=== PATIENT | male | born 1935 | race Caucasian/White ===

== ENCOUNTER 2016-10-11 12:32 | Observation (INO) | payer MEDICARE ==
[2016-10-11] VITALS (8 sets, daily range): BP systolic 114–151; BP diastolic 66–84; PULSE 74–90; RESP 16–20; TEMP 99.1–101.4; O2SAT 95–100
[~2016-10-11] VITALS: Ht 170.2 cm; Wt 62.0 kg
[~2016-10-11 12:32] MED LIST: ASPI1TAB7 PO; BP MED; CHOLMIS5
[2016-10-11] MEDS ORDERED: SODIUM CHLORIDE 0.9% FLUSH 5 ML FLUSH IVF PRN (12:45)
[2016-10-11] MEDS ORDERED: SIMV10TA PO (12:46)
[2016-10-11] MEDS ORDERED: BENI5TAB4 PO (12:46)
[2016-10-11] MEDS ORDERED: ASPI1TAB69 PO (12:46)
[2016-10-11 13:05] LABS: AUTOMATED NEUTROPHIL # 6.9 TH/MM3 (1.8-7.7); BASOPHIL % 0.2 % (0.0-2.0); EOSINOPHIL # 0.2 TH/MM3 (0-0.4); EOSINOPHIL % 2.9 % (0.0-4.0); HEMATOCRIT 31.7 % (39.0-51.0); HEMO FLAGS DIFF FINAL; LYMPH % 5.2 % (9.0-44.0); LYMPHOCYTE # 0.4 TH/MM3 (1.0-4.8); MEAN CELL VOLUME 88.6 FL (80.0-100.0); MEAN CORPUSCULAR HEMOGLOBIN 29.6 PG (27.0-34.0); MEAN CORPUSCULAR HGB CONC 33.4 % (32.0-36.0); MONO % 7.1 % (0.0-8.0); NEUT % 84.6 % (16.0-70.0); PLATELET COUNT 185 TH/MM3 (150-450); RED BLOOD COUNT 3.58 MIL/MM3 (4.50-5.90); RED CELL DISTRIBUTION WIDTH 13.9 % (11.6-17.2); WHITE BLOOD COUNT 8.1 TH/MM3 (4.0-11.0)
--- NOTE | 2016-10-11 13:11 | RADRPT ---
EXAM DATE/TIME: 10/11/2016 13:00 [facility] COMPARISON: No previous studies available for comparison. INDICATIONS : Syncope, Palpitations. MEDICAL HISTORY : None. SURGICAL HISTORY : None. ENCOUNTER: Initial ACUITY: 1 day PAIN SCORE: 0/10 LOCATION: Bilateral chest FINDINGS: A single view of the chest demonstrates the lungs to be symmetrically aerated without evidence of mas s, infiltrate or effusion. Atherosclerotic changes are present in the aorta. There are multiple overl shravan electrocardiogram leads. The cardiomediastinal contours are unremarkable. Osseous structures a re intact. CONCLUSION: No acute disease. Jose Reeder MD on October 11, 2016 at 13:06 Board Certified Radiologist. This report was verified electronically.
[2016-10-11 13:13] LABS: APTT (PATIENT) 23.1 SEC (24.3-30.1); PROTHROMBIN TIME - PATIENT 11.4 SEC (9.8-11.6)
[2016-10-11 13:19] LABS: ALT (GPT) 24 U/L (12-78); ANION GAP 9 MEQ/L (5-15); AST (GOT) 16 U/L (15-37); BICARBONATE 28.2 MEQ/L (21.0-32.0); BLOOD UREA NITROGEN 28 MG/DL (7-18); CHLORIDE 106 MEQ/L (98-107); GLOMERULAR FILTRATION RATE 54 ML/MIN (>89); MAGNESIUM 1.2 MG/DL (1.5-2.5); POTASSIUM 3.7 MEQ/L (3.5-5.1); SODIUM (NA) 143 MEQ/L (136-145)
[2016-10-11 13:23] LABS: ALKALINE PHOSPHATASE 60 U/L (45-117); TOTAL BILIRUBIN ADULT 0.4 MG/DL (0.2-1.0)
[2016-10-11 13:50] LABS: CREATINE KINASE 54 U/L (39-308)
--- NOTE | 2016-10-11 13:52 | EKG ---
Date Performed: 10/11/2016 Time Performed: 10:40:31 PTAGE: 81 years EKG: Baseline artifact is present. Sinus rhythm NONSPECIFIC T-WAVE ABNORMALITY BORDERLINE ECG NO PREVIOUS TRACING DOCTOR: Mike Post Interpretating Date/Time 10/11/2016 13:51:13
[2016-10-11] MEDS ORDERED: CENTTAB PO (13:53)
[2016-10-11] MEDS ORDERED: METO25TA3 PO (13:53)
[2016-10-11] MEDS ORDERED: [UNRECOGNIZED DRUG - CODE] (13:53)
[2016-10-11] MEDS ORDERED: OCUVTAB PO (13:53)
[2016-10-11] MEDS ORDERED: TAMS0.4C4 PO (13:53)
[2016-10-11] MEDS ORDERED: PRAV10TA PO (13:53)
[2016-10-11] MEDS ORDERED: OMEP10CA PO (13:53)
[2016-10-11 14:09] LABS: BLOOD, URINE NEG (NEG); COMMENT (UR) CULT NOT INDICATED; CULTURE IF INDICATED CULT NOT INDICATED; GLUCOSE,URINE NEG (NEG); KETONE, URINE NEG (NEG); MUCUS URINE FEW /lpf (OCC); NITRITE,URINE NEG (NEG); SQUAMOUS EPITHELIAL CELL URINE <1 /hpf (0-5); URINE COLOR YELLOW (YELLW/STRAW)
[2016-10-11] MEDS ORDERED: SODIUM CHLORIDE 0.9% FLUSH 5 ML FLUSH FLUSH PRN (16:30)
[2016-10-11] MEDS ORDERED: POTASSIUM CHLORIDE 20 MEQ CONTROLLED RELEASE TAB PO ONE (16:30)
[2016-10-11] MEDS ORDERED: IBUPROFEN 400 MG TAB PO PRN (16:30)
[2016-10-11] MEDS ORDERED: NALOXONE HCL 0.4 MG/ML AMP IV PRN (16:30)
[2016-10-11] MEDS ORDERED: ACETAMINOPHEN 325 MG TAB PO PRN ×2 (16:30)
[2016-10-11] MEDS ORDERED: SENNOSIDES 8.6 MG TAB PO PRN (16:30)
--- NOTE | 2016-10-11 16:40 | HHI.HP ---
HPI Service [facility] Primary Care Physician Benjamin Reilly MD Admission Diagnosis Near-Syncope Diagnoses: Chief Complaint: Almost fainted Travel History International Travel<30 Days: No Contact w/Intl Traveler <30 Da: No Traveled to Known Affected Are: No History of Present Illness The patient is an 81-year-old male with a past medical history of hypertension and hyperlipidemia who is presenting to the hospital after having a near syncopal episode. The patient said that he was having breakfast with his son and while he was trying to get his pancakes he felt his head was lowering and he was unable to stop it. He did not pass out. He did feel confused following the episode. He denies any sensation of dizziness or any visual changes. He was told that he appeared like he was shaking in his hands and arms. The paramedics arrived on the scene and the patient was brought to the hospital. The patient does mention that earlier in the day he was trying to get on his 3 wheeled motorcycle but he was unable to do so because his legs were very weak. He noticed more weakness on the left lower extremity. He has noticed increased lower extremity weakness for the past couple of weeks and got a walker about 2 weeks ago. The patient denies any chest pain or shortness of breath. He has had some diarrhea. He denies any dysuria. He says he had a similar episode a couple of years ago following dental surgery where he nearly passed out. He says at that time his primary wanted him to get his brain and heart checked. Review of Systems Except as stated in HPI: all other systems reviewed are Neg Past Family Social History Past Medical History Hypertension Hyperlipidemia Osteoarthritis Near syncope Past Surgical History Right hip replacement Allergies: Coded Allergies: Penicillin (Verified Allergy, Intermediate, SWELLING, 07/24/13) Active Ordered Medications Current Medications Medications (Trade) Dose Ordered Sig/Trent Route Start Time Stop Time Status Last Admin (Magnesium Sulfate 1 Gm Premix) 100 ml @ 100 mls/hr Q1H IV 10/11/16 17:00 10/11/16 19:59 (Ecotrin Ec) 81 mg DAILY PO 10/12/16 09:00 (Ocuvite) 1 tab DAILY PO 10/12/16 09:00 (Flomax) 0.4 mg HS PO 10/11/16 21:00 (Protonix) 20 mg DAILY PO 10/12/16 09:00 Pravastatin Sodium 20 mg 20 mg DAILY PO 10/12/16 09:00 (1/2 NS 1000 ml Inj) 1,000 ml @ 75 mls/hr [id number] IV 10/11/16 16:26 10/12/16 19:05 (NS Flush) 2 ml UNSCH PRN FLUSH 10/11/16 16:30 (NS Flush) 2 ml BID FLUSH 10/11/16 21:00 (Tylenol) 650 mg Q4H PRN PO 10/11/16 16:30 (Colace) 100 mg Q12H PO 10/11/16 21:00 (Senokot) 17.2 mg Q12H PRN PO 10/11/16 16:30 (Tylenol) 650 mg Q6H PRN PO 10/11/16 16:30 (Motrin) 400 mg Q6H PRN PO 10/11/16 16:30 (Roxicodone) 5 mg Q4H PRN PO 10/11/16 16:30 (Narcan Inj) 0.4 mg UNSCH PRN IV 10/11/16 16:30 Family History His father was diagnosed with Parkinson's disease Social History The patient does not smoke. He drinks one glass of wine daily. He denies illicit drug use. Physical Exam Vital Signs Vital Signs Date Time Temp Pulse Resp B/P Pulse Ox O2 Delivery O2 Flow Rate FiO2 10/11/16 15:20 80 119/76 99 Nasal Cannula 2 10/11/16 13:20 78 120/68 98 Nasal Cannula 2 10/11/16 12:47 100 Nasal Cannula 2 10/11/16 12:37 20 97 Nasal Cannula 2 10/11/16 12:37 81 100 10/11/16 12:34 20 Physical Exam GENERAL: This is a well-nourished, well-developed patient, in no apparent distress. SKIN: No rashes, ecchymoses or lesions. Cool and dry. HEAD: Atraumatic. Normocephalic. No temporal or scalp tenderness. EYES: Pupils equal round and reactive. Extraocular motions intact. No scleral icterus. No injection or drainage. ENT: Nose without bleeding, purulent drainage or septal hematoma. Throat without erythema, tonsillar hypertrophy or exudate. Uvula midline. Airway patent. NECK: Trachea midline. No JVD or lymphadenopathy. Supple, nontender, no meningeal signs. CARDIOVASCULAR: Regular rate and rhythm without murmurs, gallops, or rubs. RESPIRATORY: Clear to auscultation. Breath sounds equal bilaterally. No wheezes , rales, or rhonchi. GASTROINTESTINAL: Abdomen soft, non-tender, nondistended. No hepato-splenomegaly , or palpable masses. No guarding. MUSCULOSKELETAL: Extremities without clubbing, cyanosis, or edema. No edema noted. Slight tenderness to palpation of left booth. No calf tenderness. Negative Homans sign bilaterally. NEUROLOGICAL: Awake and alert. Cranial nerves II through XII intact. Sensory grossly within normal limits. Five out of 5 muscle strength in upper extremities. 3/5 strength in the left lower extremity, 4 out of 5 strength in the right lower extremity. Normal speech. PSYCH: Mood and affect appropriate. Laboratory Laboratory Tests Test 10/11/16 10/11/16 12:50 13:50 White Blood Count 8.1 Red Blood Count 3.58 Hemoglobin 10.6 Hematocrit 31.7 Mean Corpuscular Volume 88.6 Mean Corpuscular Hemoglobin 29.6 Mean Corpuscular Hemoglobin 33.4 Concent Red Cell Distribution Width 13.9 Platelet Count 185 Mean Platelet Volume 8.4 Neutrophils (%) (Auto) 84.6 Lymphocytes (%) (Auto) 5.2 Monocytes (%) (Auto) 7.1 Eosinophils (%) (Auto) 2.9 Basophils (%) (Auto) 0.2 Neutrophils # (Auto) 6.9 Lymphocytes # (Auto) 0.4 Monocytes # (Auto) 0.6 Eosinophils # (Auto) 0.2 Basophils # (Auto) 0.0 CBC Comment DIFF FINAL Differential Comment Prothrombin Time 11.4 Prothromb Time International 1.0 Ratio Activated Partial 23.1 Thromboplast Time Sodium Level 143 Potassium Level 3.7 Chloride Level 106 Carbon Dioxide Level 28.2 Anion Gap 9 Blood Urea Nitrogen 28 Creatinine 1.28 Estimat Glomerular Filtration 54 Rate Random Glucose 143 Calcium Level 8.6 Magnesium Level 1.2 Total Bilirubin 0.4 Aspartate Amino Transf 16 (AST/SGOT) Alanine Aminotransferase 24 (ALT/SGPT) Alkaline Phosphatase 60 Total Creatine Kinase 54 Troponin I LESS THAN 0.02 B-Type Natriuretic Peptide 72 Total Protein 6.7 Albumin 3.4 Urine Color YELLOW Urine Turbidity CLEAR Urine pH 5.0 Urine Specific [place] 1.018 Urine Protein TRACE Urine Glucose (UA) NEG Urine Ketones NEG Urine Occult Blood NEG Urine Nitrite NEG Urine Bilirubin NEG Urine Urobilinogen LESS THAN 2.0 Urine Leukocyte Esterase NEG Urine RBC LESS THAN 1 Urine WBC 1 Urine Squamous Epithelial <1 Cells Urine Mucus FEW Microscopic Urinalysis Comment CULT NOT INDICATED Result Diagram: 10/11/16 1250 10/11/16 1250 Imaging Last Impressions Chest X-Ray 10/11/16 1245 Signed Impressions: Service Date/Time: Tuesday, October 11, 2016 13:00 - CONCLUSION: No acute disease. Jose Reeder MD Assessment and Plan Assessment and Plan Near syncope/ Lower extremity weakness The patient had an episode during breakfast where he had sudden weakness but did not pass out. He had a similar episode a couple of years ago that was related to a dental procedure. He says that people said that he was shaking during the episode a little bit. The pt says he has had LE weakness for the past couple of weeks, worse on his left. - CT of the head pending. - Check an EEG. - Seizure precautions, Ativan as needed. - Neuro checks. - carotid US, echo. - PT/ OT. - hold antihypertensive meds and check orthostatics. Renal insufficiency Unsure of baseline. - Avoid nephrotoxic agents and monitor BMP. - IV fluids. Hypomagnesemia May be contributing to muscle weakness. - Replete and monitor. Osteoarthritis Involving the bilateral shoulders. - Physical therapy. - Pain control as needed with a bowel regimen. PPx: SCDs. Code Status Full. Discussed Condition With Pt, Dr. Polanco. Jose Limon DO Oct 11, 2016 16:40
--- NOTE | 2016-10-11 16:49 | PD ---
HPI Chief Complaint: Syncope/Near-Syncope Time Seen by Provider: 12:37 Travel History International Travel<30 days: No Contact w/Intl Traveler<30days: No Traveled to known affect area: No History of Present Illness HPI Patient is 81 year old male with multiple syncopal episodes over the past few months. Apparently at breakfast today patient became very pale, with confused response lasting for only a few seconds. Patient denied CP, SOB, Abdominal pain , NVD, headache, focal weakness. He went out to get on his motorcycle (tricycle ) and could not get his leg over the saddle. Family called 911. Patient states that he has been seen by his PCP once for this some months ago and recommended for a "heart test and a brain test" and he never had either done. Currently states feels "fine". No current complaints. PFSH Past Medical History Hx Anticoagulant Therapy: Yes (81 MG) Cardiovascular Problems: Yes High Cholesterol: Yes Chemotherapy: Yes (PROSTATE) Cerebrovascular Accident: Yes Hypertension: Yes Social History Alcohol Use: No Tobacco Use: No Substance Use: No Allergies-Medications (Allergen,Severity, Reaction): Coded Allergies: Penicillin (Verified Allergy, Intermediate, SWELLING, 07/24/13) Reported Meds & Prescriptions Reported Meds & Active Scripts Active Reported Centrum Silver (Multiple Vitamins W/ Minerals) 1 Tab 1 Tab PO DAILY Ocuvite (Multiple Vitamins W/ Minerals) 1 Tab 1 Tab PO DAILY Wal-Mucil (Psyllium) 0.52 Gm Cap Tamsulosin (Tamsulosin HCl) 0.4 Mg Cap 0.4 Mg PO HS Omeprazole 10 Mg Cap 10 Mg PO DAILY Pravastatin 10 Mg Tab 10 Mg PO DAILY Metoprolol Tartrate 25 Mg Tab 25 Mg PO BID Aspirin 81 Mg Tabdr 81 Mg PO DAILY Simvastatin 10 Mg Tab 10 Mg PO DAILY Benicar (Olmesartan) 5 Mg Tab 5 Mg PO DAILY Review of Systems Except as stated in HPI: all other systems reviewed are Neg Physical Exam Narrative GENERAL: WD/WN in nad SKIN: Warm and dry. HEAD: Atraumatic. Normocephalic. EYES: Pupils equal and round. No scleral icterus. No injection or drainage. ENT: No nasal bleeding or discharge. Mucous membranes pink and moist. NECK: Trachea midline. No JVD. CARDIOVASCULAR: Regular rate and rhythm. 2+ pulses in all 4 extremities. RESPIRATORY: No accessory muscle use. Clear to auscultation. Breath sounds equal bilaterally. GASTROINTESTINAL: Abdomen soft, non-tender, nondistended. Hepatic and splenic margins not palpable. MUSCULOSKELETAL: Extremities without clubbing, cyanosis, or edema. No obvious deformities. NEUROLOGICAL: Awake and alert. No obvious cranial nerve deficits. Motor grossly within normal limits. Five out of 5 muscle strength in the arms and legs. Normal speech. PSYCHIATRIC: Appropriate mood and affect; insight and judgment normal. Data Data Last Documented VS Vital Signs Date Time Temp Pulse Resp B/P Pulse Ox O2 Delivery O2 Flow Rate FiO2 10/11/16 13:20 78 120/68 98 Nasal Cannula 2 10/11/16 12:37 20 Orders Electrocardiogram (10/11/16 12:45) Complete Blood Count With Diff (10/11/16 12:45) Comprehensive Metabolic Panel (10/11/16 12:45) Magnesium (Mg) (10/11/16 12:45) B-Type Natriuretic Peptide (10/11/16 12:45) Ckmb (Isoenzyme) Profile (10/11/16 12:45) Troponin I (10/11/16 12:45) Act Partial Throm Time (Ptt) (10/11/16 12:45) Prothrombin Time / Inr (Pt) (10/11/16 12:45) Urinalysis - C+S If Indicated (10/11/16 12:45) Chest, Single Ap (10/11/16 12:45) Ecg Monitoring (10/11/16 12:45) Iv Access Insert/Monitor (10/11/16 12:45) Oximetry (10/11/16 12:45) Sodium Chloride 0.9% Flush (Ns Flush) (10/11/16 12:45) Admit Order (Ed Use Only) (10/11/16 ) Labs Laboratory Tests Test 10/11/16 10/11/16 12:50 13:50 White Blood Count 8.1 TH/MM3 Red Blood Count 3.58 MIL/MM3 Hemoglobin 10.6 GM/DL Hematocrit 31.7 % Mean Corpuscular Volume 88.6 FL Mean Corpuscular Hemoglobin 29.6 PG Mean Corpuscular Hemoglobin 33.4 % Concent Red Cell Distribution Width 13.9 % Platelet Count 185 TH/MM3 Mean Platelet Volume 8.4 FL Neutrophils (%) (Auto) 84.6 % Lymphocytes (%) (Auto) 5.2 % Monocytes (%) (Auto) 7.1 % Eosinophils (%) (Auto) 2.9 % Basophils (%) (Auto) 0.2 % Neutrophils # (Auto) 6.9 TH/MM3 Lymphocytes # (Auto) 0.4 TH/MM3 Monocytes # (Auto) 0.6 TH/MM3 Eosinophils # (Auto) 0.2 TH/MM3 Basophils # (Auto) 0.0 TH/MM3 CBC Comment DIFF FINAL Differential Comment Prothrombin Time 11.4 SEC Prothromb Time International 1.0 RATIO Ratio Activated Partial 23.1 SEC Thromboplast Time Sodium Level 143 MEQ/L Potassium Level 3.7 MEQ/L Chloride Level 106 MEQ/L Carbon Dioxide Level 28.2 MEQ/L Anion Gap 9 MEQ/L Blood Urea Nitrogen 28 MG/DL Creatinine 1.28 MG/DL Estimat Glomerular Filtration 54 ML/MIN Rate Random Glucose 143 MG/DL Calcium Level 8.6 MG/DL Magnesium Level 1.2 MG/DL Total Bilirubin 0.4 MG/DL Aspartate Amino Transf 16 U/L (AST/SGOT) Alanine Aminotransferase 24 U/L (ALT/SGPT) Alkaline Phosphatase 60 U/L Total Creatine Kinase 54 U/L Troponin I LESS THAN 0.02 NG/ML B-Type Natriuretic Peptide 72 PG/ML Total Protein 6.7 GM/DL Albumin 3.4 GM/DL Urine Color YELLOW Urine Turbidity CLEAR Urine pH 5.0 Urine Specific [place] 1.018 Urine Protein TRACE mg/dL Urine Glucose (UA) NEG mg/dL Urine Ketones NEG mg/dL Urine Occult Blood NEG Urine Nitrite NEG Urine Bilirubin NEG Urine Urobilinogen LESS THAN 2.0 MG/DL Urine Leukocyte Esterase NEG Urine RBC LESS THAN 1 /hpf Urine WBC 1 /hpf Urine Squamous Epithelial <1 /hpf Cells Urine Mucus FEW /lpf Microscopic Urinalysis Comment CULT NOT INDICATED MDM Medical Decision Making Medical Screen Exam Complete: Yes Emergency Medical Condition: Yes Differential Diagnosis Syncope, near syncope, cardiogenic syncope, medication reaction, dehydration, rhabdomyolysis. Narrative Course Roomed in ED, stable. Initial workup shows mild anemia, otherwise negative. Discussed with patient, family and Hospitalist for obs for syncope, possible cardiogenic cause. Diagnosis Primary Impression: Near syncope Admitting Information Admitting Physician Requests: Observation Condition: Stable Kael Polanco MD Oct 11, 2016 16:49
[2016-10-11] MEDS ORDERED: LORazepam 2 MG/ML VIAL IV PUSH PRN (17:00)
[2016-10-11] MEDS: MAGNESIUM SULFATE 1 GM PREMIX 100 ML IV SCH ×3 (17:36→22:20)
--- NOTE | 2016-10-11 17:49 | RADRPT ---
EXAM DATE/TIME: 10/11/2016 16:56 [facility] COMPARISON: No previous studies available for comparison. INDICATIONS : Left leg pain. MEDICAL HISTORY : Hypercholesterolemia. Hypertension. Carcinoma, prostate. Cerebrovascular accident. Anticoagulant t herapy, Aspirin. Chemotherapy. SURGICAL HISTORY : Right hip surgery. ENCOUNTER: Initial ACUITY: 1 day PAIN SCORE: 7/10 LOCATION: Left leg. TECHNIQUE: Venous ultrasound of the leg was performed from the inguinal ligament to the proximal calf. Real-albina e, color Doppler and spectral tracing, compression and augmentation techniques were used. FINDINGS: There is normal compressibility of the deep venous system from the inguinal region to the proximal ca lf. No echogenic clot is seen in the lumen of the common femoral, femoral, popliteal, and posterior tibial veins. There is a normal response of the venous system to proximal and distal augmentation an d respiration. CONCLUSION: Negative exam with no evidence of deep venous thrombosis. Jose Reeder MD on October 11, 2016 at 17:47 Board Certified Radiologist. This report was verified electronically.
--- NOTE | 2016-10-11 17:57 | RADRPT ---
EXAM DATE/TIME: 10/11/2016 17:07 [facility] COMPARISON: No previous studies available for comparison. INDICATIONS : Syncope. MEDICAL HISTORY : Hypercholesterolemia. Hypertension. Carcinoma, prostate. Anticoagulant therapy, Aspirin. Chemotherapy . SURGICAL HISTORY : Right hip surgery. ENCOUNTER: Initial ACUITY: 1 day PAIN SCORE: 0/10 LOCATION: Bilateral neck PEAK SYSTOLIC VELOCITIES (cm/sec): ICA/CCA RATIO: Right: 1.0 Left: 1.1 ICA: Right: 113 Left: 106 CCA: Right: 115 Left: 94 ECA: Right: 72 Left: 93 VERTEBRAL: Right: 50 antegrade Left: 86 antegrade Elevated flow velocities and ICA/CCA ratios have been found to correlate with increased degrees of vessel stenosis, calculated as percentage of diameter relative to a normal segment of distal ICA/CCA FINDINGS: RIGHT CAROTID: No significant stenosis is visualized. Mild plaque. The waveforms are within normal limits. LEFT CAROTID: No significant stenosis is visualized. Mild plaque. The waveforms are within normal limits. VERTEBRAL ARTERIES: Antegrade flow is seen in both vertebral arteries. MISCELLANEOUS: None. CONCLUSION: No hemodynamically significant stenosis in either carotid artery. Marciano Smith MD on October 11, 2016 at 17:54 Board Certified Radiologist. This report was verified electronically.
--- NOTE | 2016-10-11 18:15 | RADRPT ---
EXAM DATE/TIME: 10/11/2016 17:56 [facility] COMPARISON: No previous studies available for comparison. INDICATIONS : Syncope, weakness. RADIATION DOSE: 40.92 CTDIvol (mGy) MEDICAL HISTORY : Stroke. Hypertension. Carcinoma, prostate. SURGICAL HISTORY : None. ENCOUNTER: Initial ACUITY: 1 day PAIN SCALE: 0/10 LOCATION: cranial TECHNIQUE: Multiple contiguous axial images were obtained of the head. Using automated exposure control and adj ustment of the mA and/or kV according to patient size, radiation dose was kept as low as reasonably a chievable to obtain optimal diagnostic quality images. FINDINGS: There is marked central and cortical atrophy with dilatation of ventricular and sulcal spaces. There is low attenuation throughout the white matter. There is no parenchymal hemorrhage, acute infarction or mass lesion identified. There are no extra-axial fluid collections appreciated. The posterior f shelby is unremarkable with midline fourth ventricle. The portion of the orbits and paranasal sinuses visualized are unremarkable. CONCLUSION: 1. Cerebral atrophy and chronic ischemic small vessel vasculopathy. Marciano Smith MD on October 11, 2016 at 18:13 Board Certified Radiologist. This report was verified electronically.
[2016-10-11] MEDS: SODIUM CHLOR 0.45% 1000 ML INJ 1,000 ML IV SCH (18:18)
[2016-10-11] MEDS: DOCUSATE SODIUM 100 MG CAP PO SCH (20:45)
[2016-10-11] MEDS: SODIUM CHLORIDE 0.9% FLUSH 5 ML FLUSH FLUSH SCH (20:45)
[2016-10-11] MEDS ORDERED: TAMSULOSIN HCL 0.4 MG CAP PO SCH (21:00)
[2016-10-12] MEDS ORDERED: diphenhydrAMINE HCL 25 MG CAP PO ONE (00:45)
[2016-10-12 03:33] VITALS: BP 141/72; PULSE 80; RESP 19; TEMP 99.3; O2SAT 96
[2016-10-12 05:35] LABS: AUTOMATED NEUTROPHIL # 4.1 TH/MM3 (1.8-7.7); BASOPHIL % 0.4 % (0.0-2.0); EOSINOPHIL # 0.2 TH/MM3 (0-0.4); EOSINOPHIL % 4.4 % (0.0-4.0); HEMATOCRIT 31.9 % (39.0-51.0); HEMO FLAGS DIFF FINAL; LYMPH % 6.5 % (9.0-44.0); LYMPHOCYTE # 0.3 TH/MM3 (1.0-4.8); MONO % 10.1 % (0.0-8.0); NEUT % 78.6 % (16.0-70.0); PLATELET COUNT 175 TH/MM3 (150-450); RED BLOOD COUNT 3.63 MIL/MM3 (4.50-5.90); RED CELL DISTRIBUTION WIDTH 14.2 % (11.6-17.2); WHITE BLOOD COUNT 5.2 TH/MM3 (4.0-11.0)
[2016-10-12 06:09] LABS: BICARBONATE 25.3 MEQ/L (21.0-32.0); POTASSIUM 3.6 MEQ/L (3.5-5.1)
[2016-10-12] MEDS: SODIUM CHLOR 0.45% 1000 ML INJ 1,000 ML IV SCH (07:31)
[2016-10-12 07:49] VITALS: BP 128/64; PULSE 83; RESP 18; TEMP 98.8; O2SAT 95
[2016-10-12] MEDS: DOCUSATE SODIUM 100 MG CAP PO SCH (09:00)
[2016-10-12] MEDS ORDERED: ASPIRIN EC 81 MG TABEC PO SCH (09:00)
[2016-10-12] MEDS ORDERED: PRAVASTATIN SOD 20 MG TAB PO SCH (09:00)
[2016-10-12] MEDS ORDERED: MULTIVITAMIN-OPHTHALMIC 1 TAB PO SCH (09:00)
[2016-10-12] MEDS ORDERED: PANTOPRAZOLE SOD 20 MG DELAYED RELEASE TAB PO SCH (09:00)
[2016-10-12 11:00] VITALS: PULSE 79
[2016-10-12] MEDS: SODIUM CHLORIDE 0.9% FLUSH 5 ML FLUSH FLUSH SCH (11:07)
--- NOTE | 2016-10-12 11:35 | HHI.DCPOC ---
Discharge Care Plan Diagnosis: (1) Near syncope Goals to Promote Your Health * To prevent worsening of your condition and complications * To maintain your health at the optimal level Directions to Meet Your Goals Take your medications as prescribed Follow your dietary instruction Follow activity as directed Keep your appointments as scheduled Take your immunizations and boosters as scheduled If your symptoms worsen call your PCP, if no PCP go to Urgent Care Center or Emergency Room Smoking is Dangerous to Your Health. Avoid second hand smoke Call the 24-hour hour crisis hotline for domestic abuse at Jose Limon DO Oct 12, 2016 11:35
--- NOTE | 2016-10-12 11:45 | HHI.PR ---
Subjective Remarks The pt says that he recalls he was having a hot flash during his near-syncopal episode yesterday. He said since he has had prostate cancer he has had intermittent hot flashes. Currently he feels well. Worked with PT. He had the EEG done and was about to get an echo done. He said he wanted to go home and did not want to wait for the EEG or echo to be resulted. He said he will follow up with his PCP. Discussed with nursing. Objective Vitals Vital Signs Date Time Temp Pulse Resp B/P Pulse Ox O2 Delivery O2 Flow Rate FiO2 10/12/16 07:49 98.8 83 18 128/64 95 10/12/16 03:33 99.3 80 19 141/72 96 10/11/16 23:20 99.1 79 20 114/66 95 117/66 149/84 10/11/16 20:50 74 10/11/16 19:30 18 10/11/16 18:14 101.4 90 16 151/75 95 10/11/16 15:20 80 119/76 99 Nasal Cannula 2 10/11/16 13:20 78 120/68 98 Nasal Cannula 2 10/11/16 12:47 100 Nasal Cannula 2 10/11/16 12:37 20 97 Nasal Cannula 2 10/11/16 12:37 81 100 10/11/16 12:34 20 Result Diagram: 10/12/16 0508 10/12/16 0508 Imaging Last Impressions Chest X-Ray 10/11/16 1245 Signed Impressions: Service Date/Time: Tuesday, October 11, 2016 13:00 - CONCLUSION: No acute disease. Jose Reeder MD Lower Extremity Ultrasound 10/11/16 0000 Signed Impressions: Service Date/Time: Tuesday, October 11, 2016 16:56 - CONCLUSION: Negative exam with no evidence of deep venous thrombosis. Jose Reeder MD Head CT 10/11/16 0000 Signed Impressions: Service Date/Time: Tuesday, October 11, 2016 17:56 - CONCLUSION: 1. Cerebral atrophy and chronic ischemic small vessel vasculopathy. Marciano Smith MD Carotid Artery Ultrasound 10/11/16 0000 Signed Impressions: Service Date/Time: Tuesday, October 11, 2016 17:07 - CONCLUSION: No hemodynamically significant stenosis in either carotid artery. Marciano Smith MD Objective Remarks GENERAL: This is a well-nourished, well-developed patient, in no apparent distress. SKIN: No rashes, ecchymoses or lesions. Cool and dry. HEAD: Atraumatic. Normocephalic. No temporal or scalp tenderness. EYES: Pupils equal round and reactive. Extraocular motions intact. No scleral icterus. No injection or drainage. ENT: Nose without bleeding, purulent drainage or septal hematoma. Throat without erythema, tonsillar hypertrophy or exudate. Uvula midline. Airway patent. NECK: Trachea midline. No JVD or lymphadenopathy. Supple, nontender, no meningeal signs. CARDIOVASCULAR: Regular rate and rhythm without murmurs, gallops, or rubs. RESPIRATORY: Clear to auscultation. Breath sounds equal bilaterally. No wheezes , rales, or rhonchi. GASTROINTESTINAL: Abdomen soft, non-tender, nondistended. No hepato-splenomegaly , or palpable masses. No guarding. MUSCULOSKELETAL: Extremities without clubbing, cyanosis, or edema. No edema noted. Slight tenderness to palpation of left booth. No calf tenderness. Negative Homans sign bilaterally. NEUROLOGICAL: Awake and alert. Cranial nerves II through XII intact. Sensory grossly within normal limits. Five out of 5 muscle strength in upper extremities. 3/5 strength in the left lower extremity, 4 out of 5 strength in the right lower extremity. Normal speech. PSYCH: Mood and affect appropriate. Medications and IVs Current Medications Medications (Trade) Dose Ordered Sig/Trent Route Start Time Stop Time Status Last Admin (Ecotrin Ec) 81 mg DAILY PO 10/12/16 09:00 10/12/16 11:07 (Ocuvite) 1 tab DAILY PO 10/12/16 09:00 10/12/16 11:07 (Flomax) 0.4 mg HS PO 10/11/16 21:00 10/11/16 20:45 (Protonix) 20 mg DAILY PO 10/12/16 09:00 10/12/16 11:07 Pravastatin Sodium 20 mg 20 mg DAILY PO 10/12/16 09:00 10/12/16 11:07 (1/2 NS 1000 ml Inj) 1,000 ml @ 75 mls/hr [id number] IV 10/11/16 16:26 10/12/16 19:05 10/12/16 07:31 (NS Flush) 2 ml UNSCH PRN FLUSH 10/11/16 16:30 (NS Flush) 2 ml BID FLUSH 10/11/16 21:00 10/12/16 11:07 (Tylenol) 650 mg Q4H PRN PO 10/11/16 16:30 10/11/16 18:29 (Colace) 100 mg Q12H PO 10/11/16 21:00 10/11/16 20:45 (Senokot) 17.2 mg Q12H PRN PO 10/11/16 16:30 (Motrin) 400 mg Q6H PRN PO 10/11/16 16:30 (Roxicodone) 5 mg Q4H PRN PO 10/11/16 16:30 (Narcan Inj) 0.4 mg UNSCH PRN IV 10/11/16 16:30 (Ativan Inj) 1 mg Q2H PRN IV PUSH 10/11/16 17:00 A/P Assessment and Plan Near syncope/ Lower extremity weakness The patient had an episode during breakfast where he had sudden weakness but did not pass out. He had a similar episode a couple of years ago that was related to a dental procedure. He says that people said that he was shaking during the episode a little bit. The pt says he has had LE weakness for the past couple of weeks, worse on his left. CT of the head remarkable for cerebral atrophy and chronic ischemic small vessel vasculopathy. Carotid US unremarkable. The pt was not found to be orthostatic. - EEG and echo reads pending. The pt wants to be discharged and said he will follow up the results with his PCP. - Seizure precautions, Ativan as needed. No seizure activity noted. - Neuro checks. - PT/ OT. The pt will be discharged with [facility]. - resume Lopressor, d/c Benicar. - monitor on telemetry. Renal insufficiency Unsure of baseline. - Avoid nephrotoxic agents and monitor BMP. - IV fluids. Improved. - d/c Benicar. Hypomagnesemia May be contributing to muscle weakness. - Replete and monitor. Repeat magnesium level pending. - check a phos level. Osteoarthritis Involving the bilateral shoulders. - Physical therapy. Will be discharged with [facility]. - Pain control as needed with a bowel regimen. Anemia Unsure of baseline. Stable. - outpt follow-up with PCP. PPx: SCDs. Discharge Planning D/c with [facility]. Jose Limon DO Oct 12, 2016 11:45
--- NOTE | 2016-10-12 12:28 | EKG ---
Date Performed: 10/12/2016 Time Performed: 06:01:49 PTAGE: 81 years EKG: Sinus rhythm NONSPECIFIC T-WAVE ABNORMALITY BORDERLINE ECG No significant change from prior electrocardiogram. PREVIOUS TRACING : 10/11/2016 10.40 DOCTOR: Mike Post Interpretating Date/Time 10/12/2016 12:27:30
--- NOTE | 2016-10-12 12:37 | HHI.FF ---
Face to Face Verification Diagnosis: (1) Near syncope (2) Hypomagnesemia (3) History of prostate cancer Physical Therapy Order: Evaluate and Treat, Improve ambulation, Strength and gait training Home Health Nursing Order: Medical education Medication education-adverse effect Nursing assessment with vital signs I have seen patient Yamil Chambers on 10/12/16. My clinical findings support the need for the requested home health care services because: Deconditioned w/ increased weakness High risk of falls I certify that my clinical findings support that this patient is homebound because: Unsteady gait/balance Unsafe to leave home unassisted Jose Limon DO Oct 12, 2016 12:37
--- NOTE | 2016-10-12 12:52 | EC ---
Study Study Date:10/12/2016 STUDY CONCLUSIONS SUMMARY - Left ventricle: The cavity size was normal. Wall thickness was normal. Systolic function was normal. The estimated ejection fraction was in the range of 55% to 60%. Wall motion was normal; there were no regional wall motion abnormalities. Doppler parameters are consistent with abnormal left ventricular relaxation (grade 1 diastolic dysfunction). - Aortic valve: Valve area: 1.95cm^2(VTI). Valve area: 1.94cm^2 (Vmax). - Mitral valve: Mildly calcified annulus. Mildly thickened leaflets, . If LV function is below 40, please consider prescribing an ACEI or ARB or document rationale for non-use. PROCEDURE DATA STUDY STATUS: Elective. Procedure: Transthoracic echocardiography. Image quality was suboptimal. Scanning was performed from the parasternal, apical, and subcostal acoustic windows. Study completion: The patient tolerated the procedure well. Transthoracic echocardiography. M-mode, complete 2D, complete spectral Doppler, and color Doppler. Height: Height: 67in. Weight: Weight: 135.7lb. Body mass index: BMI: 21.3kg/m^2. Body surface area: BSA: 1.72m^2. Patient status: Inpatient. CARDIAC ANATOMY LEFT VENTRICLE: The cavity size was normal. Wall thickness was normal. Systolic function was normal. The estimated ejection fraction was in the range of 55% to 60%. Wall motion was normal; there were no regional wall motion abnormalities. Doppler parameters are consistent with abnormal left ventricular relaxation (grade 1 diastolic dysfunction). AORTIC VALVE: Not well visualized. Mildly thickened, mildly calcified leaflets. Doppler: Transvalvular velocity was within the normal range. There was no stenosis. No regurgitation. Valve area: 1.95cm^2(VTI). Indexed valve area: 1.13cm^2/m^2 (VTI). Valve area: 1.94cm^2 (Vmax). Indexed valve area: 1.13cm^2/m^2 (Vmax). Mean gradient: 4mm Hg (S). AORTA: Aortic root: The aortic root was normal in size. MITRAL VALVE: Mildly calcified annulus. Mildly thickened leaflets, . Doppler: Transvalvular velocity was within the normal range. There was no evidence for stenosis. Trace regurgitation. LEFT ATRIUM: The atrium was normal in size. RIGHT VENTRICLE: Poorly visualized. The cavity size was normal. PULMONIC VALVE: Poorly visualized. Doppler: Transvalvular velocity was within the normal range. There was no evidence for stenosis. No regurgitation. TRICUSPID VALVE: Poorly visualized. Doppler: Transvalvular velocity was within the normal range. Trace regurgitation. PULMONARY ARTERY: The main pulmonary artery was normal-sized. RIGHT ATRIUM: Poorly visualized. The atrium was normal in size. PERICARDIUM: A prominent pericardial fat pad was present. There was no pericardial effusion. SYSTEMIC VEINS: Inferior vena cava: The vessel was normal in size. Patient weight: 135.7lb _Ejection fraction:_ 65-75% _Fractional shortening:_ 32% up to 5Kg 5-11.5Kg 11.6-22.9Kg 23-45Kg 45-57Kg Aortic Root 7-13 <17 13-22 17-27 17-27 LA diam 6-13 <23 24-38 33-47 37-40 RVID 10-17 7-15 7-15 7-18 8-17 LVIDd 12-22 <32 24-38 33-47 37-40 LVPW 2-4 3-6 5-7 6-8 7-8 IVS 2-4 3-6 5-7 6-8 7-8 BASIC MEASUREMENTS ADULT NORMAL Left ventricle LV internal dimension, ED, chordal *41.6 mm 43-52 level, PLAX LV internal dimension, ES, chordal 29.4 mm 23-38 level, PLAX Fractional shortening, chordal level, *29 % >29 PLAX LV posterior wall thickness, ED 10.3 mm IVS/LVPW ratio, ED 1.01 <1.3 Ventricular septum Septal thickness, ED 10.4 mm Aortic valve Leaflet separation 18 mm 15-26 Aorta Root diameter, ED 31 mm Left atrium Anterior-posterior dimension 38 mm Anterior-posterior dimension index *2.21 cm/m^2 <2.2 BASIC MEASUREMENTS ADULT NORMAL Aortic valve Leaflet separation 18 mm 15-26 DOPPLER MEASUREMENTS ADULT NORMAL Aortic valve Peak velocity, S 131 cm/s Mean velocity, S 90.6 cm/s VTI, S 23.5 cm Mean gradient, S 4 mm Hg Valve area, VTI 1.95 cm^2 Valve area index, VTI 1.13 cm^2/m^2 Valve area, Vmax 1.94 cm^2 Valve area index, Vmax 1.13 cm^2/m^2 Mitral valve Peak E-wave velocity 61.7 cm/s Peak A-wave velocity 95.8 cm/s Deceleration time *317 ms 150-230 Peak E/A ratio 0.6 LEGEND: Mean values are shown as u=mean value. Asterisk (*) ramos values outside specified normal range. Prepared and signed by Mike Post [id number]
--- NOTE | 2016-10-12 20:25 | MG ---
cc: AIMEE ABRAMS Lab No: Date: 10/12/2016 Age: Sex: M Race: ELECTROENCEPHALOGRAM NUMBER [id number] INDICATION An 81-year-old man. Hyperventilation not performed. Multiple syncopal episodes, very pale. MEDICATIONS 1. Aspirin. 2. Benadryl. DESCRIPTION Diffuse alpha and beta rhythms are noted. The patient appears to be in stage II sleep at the beginning of the recording. In fact he is noted be snoring. Overall the recording is synchronous and symmetric. I did not see any epileptiform or seizure activity. Photic stimulation was performed without significant posterior driving. IMPRESSION Normal primarily stage II sleep EEG. There was some snoring. Sleep apnea could be considered. Clinical correlation is needed. MD ISAURA Sorensen/LYLY /7:56 PM /8:13 PM
== END 2016-10-12 16:52 | disposition home or self-care (01) ==
LOC: NEPC 12:32 → NEDA 15:19 → NEPHCDU 17:54
PROVIDERS: ADMIT Hospitalist; ATTEND Hospitalist
DX: R55 Syncope and collapse (principal); E83.42 Hypomagnesemia; N28.9 Disorder of kidney and ureter, unspecified; D64.9 Anemia, unspecified; I10 Essential (primary) hypertension; E78.5 Hyperlipidemia, unspecified; E78.00 Pure hypercholesterolemia, unspecified; M19.90 Unspecified osteoarthritis, unspecified site; M79.605 Pain in left leg; Z79.01 Long term (current) use of anticoagulants; Z86.73 Personal history of transient ischemic attack (TIA), and cerebral infarction without residual deficits; Z85.46 Personal history of malignant neoplasm of prostate; Z96.641 Presence of right artificial hip joint
CPT/HCPCS: 70450; 71010; 80048; 80053; 81001; 82550; 83735; 83880; 84100; 84484; 85025; 85610; 85730; 93005; 93306; 93880; 93971; 95819; 97162; 97166; 99285; G0378; G8987; G8988; G8989; J3475